=== PATIENT | female | born 1965 | race American Indian/Alaskan Native ===

== ENCOUNTER 2019-02-28 08:19 | Emergency (ER) | payer SELFPAY ==
[2019-02-28] MEDS ORDERED: NACL 0.9% 1000 ML 1,000 ML IV ONE (08:54)
[2019-02-28] MEDS ORDERED: PEPCID IV ONE (08:54)
[2019-02-28] MEDS ORDERED: SOLU-Medrol IV ONE (08:54)
--- NOTE | 2019-02-28 08:57 | Emergency Department Report ---
ED Allergic Reaction HPI - General Chief complaint: Allergic Reaction Stated complaint: ALLERGIC REACTION Time Seen by Provider: 02/28/19 08:52 Source: patient Mode of arrival: Ambulatory Limitations: No Limitations - History of Present Illness Initial Comments: This is a 53-year-old female with a history of his allergic reactions dog and cat exposure. Patient presents today stating that she is worsening his the past 2-3 weeks. Patient states that 3 weeks ago she was exposed to playing Tuesday she was exposed to cousins counts. Patient states his body causing itching and redness. She denies throat swelling or difficulty swallowing MD Complaint: allergic reaction, hives -: Gradual, week(s) (3) Exposure: other (cats, dogs) Symptoms: itching. denies: difficulty swallowing, difficulty breathing, orolingual swelling, vomiting Severity: moderate Previous Allergy History: other (hives with exposure to dogs) - Related Data Previous Rx's Medication Instructions Recorded Last Taken Type Famotidine [Pepcid] 20 mg PO BID #30 tablet 02/28/19 Unknown Rx hydrOXYzine HCL [Atarax] 25 mg PO Q6HR PRN #30 tablet 02/28/19 Unknown Rx Allergies Allergy/AdvReac Type Severity Reaction Status Date / Time ibuprofen [From Motrin] Allergy Hives Verified 02/28/19 08:21 Penicillins Allergy Hives Verified 02/28/19 08:21 BETA BLOCKERS Allergy Hives Uncoded 02/28/19 08:21 ED Review of Systems ROS: Stated complaint: ALLERGIC REACTION Other details as noted in HPI Comment: All other systems reviewed and negative ED Past Medical Hx - Past Medical History Additional medical history: HE - Surgical History Additional Surgical History: TONSILS/ NASAL/ D AND C - Social History Smoking Status: Never Smoker - Medications Home Medications: Home Medications Medication Instructions Recorded Confirmed Last Taken Type Famotidine [Pepcid] 20 mg PO BID #30 tablet 02/28/19 Unknown Rx hydrOXYzine HCL [Atarax] 25 mg PO Q6HR PRN #30 tablet 02/28/19 Unknown Rx ED Physical Exam - General Limitations: No Limitations General appearance: alert, in no apparent distress - Head Head exam: Present: atraumatic, normocephalic - Eye Eye exam: Present: normal appearance - ENT ENT exam: Present: mucous membranes moist - Neck Neck exam: Present: normal inspection - Respiratory Respiratory exam: Present: normal lung sounds bilaterally. Absent: respiratory distress - Cardiovascular Cardiovascular Exam: Present: regular rate, normal rhythm. Absent: systolic murmur, diastolic murmur, rubs, gallop - GI/Abdominal GI/Abdominal exam: Present: soft, normal bowel sounds. Absent: distended, tenderness - Extremities Exam Extremities exam: Present: normal inspection - Back Exam Back exam: Present: normal inspection - Neurological Exam Neurological exam: Present: alert, oriented X3 - Psychiatric Psychiatric exam: Present: normal affect, normal mood - Skin Skin exam: Present: warm, dry, normal color, rash (generalized hives all over body), erythema (hives), urticaria ED Course Vital Signs 02/28/19 08:26 Temperature 98.4 F Pulse Rate 79 Respiratory 18 Rate Blood Pressure 183/88 O2 Sat by Pulse 100 Oximetry - Reevaluation(s) Reevaluation #1: 02/28/19 10:00 Upon reevaluation patient looks much better she states that she feels better, hives resolving Patent airways, vital signs are normalized patient is in no acute or respiratory distress ED Medical Decision Making - Medical Decision Making 53-year-old female presents with allergic reaction/hives Patient received IV Solu Medrol Pepcid fluid resuscitation excellent patient's residence which includes received Benadryl. Patient will be discharged home with a hydroxyzine to take daily Patient is stable, sensory normal, she is in no illicit distress. Airway is clear Discussed follow-up primary care physician 3-4 days. Discuss if any worsening symptoms she may return Critical care attestation.: If time is entered above; I have spent that time in minutes in the direct care of this critically ill patient, excluding procedure time. ED Disposition Clinical Impression: Acute urticaria, Full body hives Disposition: DC-01 TO HOME OR SELFCARE Is pt being admited?: No Does the pt Need Aspirin: No Condition: Stable Instructions: Urticaria (ED), Allergies (ED) Additional Instructions: Make sure to follow up with the primary care physician as discussed. Take all your medications as you've been prescribed. If you have any worsening symptoms or develop new symptoms please return to ED immediately. Prescriptions: hydrOXYzine HCL [Atarax] 25 mg PO Q6HR PRN #30 tablet PRN Reason: Itching Famotidine [Pepcid] 20 mg PO BID #30 tablet Referrals: [facility], MD [Primary Care Provider] - 3-5 Days REGINALDO HALE MD [Referring] - 3-5 Days [facility] [Outside] - 3-5 Days [facility] [Outside] - 3-5 Days Forms: Work/School Release Form(ED) Time of Disposition: 10:00
[2019-02-28 10:19] VITALS: BP 156/83
== END 2019-02-28 10:18 | disposition home or self-care (01) ==
LOC: ED 08:19
DX: L50.8 Other urticaria (principal); L50.9 Urticaria, unspecified; Z88.6 Allergy status to analgesic agent; Z88.0 Allergy status to penicillin
CPT/HCPCS: 96374; 96375; 99282; J2930; J7030